=== PATIENT | female | born 1955 | race Caucasian/White ===

== ENCOUNTER → 2017-06-23 | Outpatient (CLI) | payer OTHER ==
--- NOTE | 2017-06-30 08:29 | WOMENS IMAGING REPORT ---
EXAM DESCRIPTION: 3D SCREENING MAMMO BILAT COMPLETED DATE/TIME: 06/23/2017 11:57 am REASON FOR STUDY: ROUTINE SCREENING; Z12.31 Z12.31 ENCNTR SCREEN MAMMOGRAM FOR MALIGNANT NEOPLASM O F FRANKI COMPARISON: 12/11/2013 TECHNIQUE: Standard craniocaudal and mediolateral oblique views of each breast recorded using digita l acquisition and breast tomosynthesis. LIMITATIONS: None. FINDINGS: RIGHT BREAST MASSES: No suspicious masses. CALCIFICATIONS: No new or suspicious calcifications. ARCHITECTURAL DISTORTION: None. DEVELOPING DENSITY: None. ASYMMETRY: None noted. OTHER: No other significant findings. LEFT BREAST MASSES: No suspicious masses. CALCIFICATIONS: No new or suspicious calcifications. ARCHITECTURAL DISTORTION: In the far left upper outer quadrant 12 to 15 cm from the nipple, an area o f architectural distortion is present on MLO view which is incompletely included in the field of view on the CC mammograms. This requires further evaluation with left breast 90 mediolateral view, comp ression magnification views in the MLO and X CC orientations and ultrasound. DEVELOPING DENSITY: None. ASYMMETRY: None noted. OTHER: No other significant findings. Read with the assistance of CAD. .[facility] - R2 Cenova Version 1.3 .[facility] Imaging - R2 Cenova Version 1.3 .[facility] - R2 Cenova Version 2.4 .[facility] - R2 Cenova Version 2.4 .[facility] - R2 Stock Plan Administrator Version 9.2 IMPRESSION: No mammographic/ tomosynthesis evidence for malignancy right breast. Architectural distortion versus superimposed shadows far left upper outer quadrant for which addition al diagnostic mammograms and ultrasound are recommended. BREAST DENSITY: b. There are scattered areas of fibroglandular density. BIRAD: 0 Incomplete: Needs Additional Imaging Evaluation and/or prior Mammograms for Comparison. RECOMMENDATION: RECOMMENDED FOLLOW-UP: Left breast diagnostic mammograms and ultrasound The patient will be contacted for additional imaging. COMMENT: The patient has been notified of the results by letter per MQSA requirements. Additional no tification policies are in place for contacting patient with suspicious or incomplete findings. Quality ID #[id number]: The [employer] recommends an annual screening mammogram for women aged 40 years or over. This facility utilizes a reminder system to ensure that all patients receive reminder letters, and/or direct phone calls for appointments. This includes reminders for routine scr eening mammograms, diagnostic mammograms, or other Breast Imaging Interventions when appropriate. Th is patient will be placed in the appropriate reminder system. The [employer] (ACR) has developed recommendations for screening MRI of the breast s in certain patient populations, to be used in conjunction with mammography. Breast MRI surveillanc e may be appropriate for women with more than 20% lifetime risk of developing breast cancer as deter mined by genetic testing, significant family history of the disease, or history of mantle radiation f or Hodgkins Disease. ACR Practice Guidelines 2008. DBT Technology DBT is a type of tomographic mammography. With conventional mammography, overlapping breast tissue ma y make lesions difficult to detect, even with good compression. DBT uses an x-ray tube that rotates a round the breast, taking images at different angles. These images are then combined to create thin sl ices of the breast that the radiologist can view as a 3D reconstruction. The [employer] unit can perform full-field digital mammograms (2D imaging); or DBT (3D imaging); or both, in a combination mode that quickly performs both the mammogram and the tomosynthesis scan while the breast is still compressed. PQRS 6045F: Fluoroscopic imaging is not utilized for breast tomosynthesis. TECHNICAL DOCUMENTATION: FINDING NUMBER: (1) ASSESSMENT: (1) JOB ID: [id number] [employer]- All Rights Reserved
== END ==
LOC: WI 11:37
PROVIDERS: ATTEND Family Medicine
DX: Z12.31 Encounter for screening mammogram for malignant neoplasm of breast (principal); R92.8 Other abnormal and inconclusive findings on diagnostic imaging of breast
CPT/HCPCS: 77063; G0202; 77067

== ENCOUNTER → 2017-07-19 | Outpatient (CLI) | payer OTHER ==
--- NOTE | 2017-07-19 12:45 | WOMENS IMAGING REPORT ---
EXAM DESCRIPTION: 3D DX MAMMO LEFT UNILAT; U/S BREAST UNILAT LIMITED COMPLETED DATE/TIME: 07/19/2017 9:42 am; 07/19/2017 9:37 am REASON FOR STUDY: INCONCLUSIVE; R92.2; R92.2 INCONCLUSIVE; LEFT BREAST UPPER OUTER R92.2 INCONCLUSI VE MAMMOGRAM COMPARISON: 06/23/2017 and 12/11/2013. TECHNIQUE: Additional images include true lateral, exaggerated CC lateral, and spot compression MLO and CC images as well as lateral and exaggerated CCL tomosynthesis images. LIMITATIONS: None. FINDINGS: BREAST: left MASSES: No suspicious masses. CALCIFICATIONS: No new or suspicious calcifications. ARCHITECTURAL DISTORTION: None. DEVELOPING DENSITY: None. ASYMMETRY: None noted. OTHER: No other significant findings. BREAST ULTRASOUND: TECHNIQUE: Static and dynamic grayscale images acquired of the left breast in the specific areas of c linical/mammographic concern. Selected color Doppler images recorded. ELASTOGRAPHY PERFORMED: No. LIMITATIONS: None. FINDINGS: MASS: No mass identified. Normal glandular tissue. ELASTOGRAPHY CHARACTERISTICS: Not applicable. OTHER: No other significant finding. IMPRESSION: No worrisome mammographic or sonographic findings on additional evaluation of the left b reast. BREAST DENSITY: b. There are scattered areas of fibroglandular density. BIRAD: 1 Negative. RECOMMENDATION: RECOMMENDED FOLLOW UP: Birads 1 or 2: The patient should resume routine screening . SPECIFIC INTERVENTION/IMAGING/CONSULTATION RECOMMENDED:No additional intervention/ imaging/consultati on needed at this time. COMMUNICATION:The negative/benign results were communicated to the patient. COMMENT: The patient has been notified of the results by letter per MQSA requirements. Additional no tification policies are in place for contacting patient with suspicious or incomplete findings. Quality ID #[id number]: The [employer] recommends an annual screening mammogram for women aged 40 years or over. This facility utilizes a reminder system to ensure that all patients receive reminder letters, and/or direct phone calls for appointments. This includes reminders for routine scr eening mammograms, diagnostic mammograms, or other Breast Imaging Interventions when appropriate. Th is patient will be placed in the appropriate reminder system. The [employer] (ACR) has developed recommendations for screening MRI of the breast s in certain patient populations, to be used in conjunction with mammography. Breast MRI surveillanc e may be appropriate for women with more than 20% lifetime risk of developing breast cancer as deter mined by genetic testing, significant family history of the disease, or history of mantle radiation f or Hodgkins Disease. ACR Practice Guidelines 2008. DBT Technology DBT is a type of tomographic mammography. With conventional mammography, overlapping breast tissue ma y make lesions difficult to detect, even with good compression. DBT uses an x-ray tube that rotates a round the breast, taking images at different angles. These images are then combined to create thin sl ices of the breast that the radiologist can view as a 3D reconstruction. The [employer] unit can perform full-field digital mammograms (2D imaging); or DBT (3D imaging); or both, in a combination mode that quickly performs both the mammogram and the tomosynthesis scan while the breast is still compressed. PQRS 6045F: Fluoroscopic imaging is not utilized for breast tomosynthesis. TECHNICAL DOCUMENTATION: FINDING NUMBER: (1) ASSESSMENT: (1) JOB ID: [id number] [employer]- All Rights Reserved
== END ==
LOC: WI 08:34
PROVIDERS: ATTEND Family Medicine
DX: R92.2 Inconclusive mammogram (principal)
CPT/HCPCS: 77061; 76642; G0206

== ENCOUNTER 2017-08-29 09:28 | Emergency (ER) | payer OTHER ==
--- NOTE | 2017-08-29 10:40 | ER Document Report ---
HPI - HPI Patient complains to provider of: pain/swelling left ankle Onset: Other - several days Onset/Duration: Sudden Quality of pain: Throbbing Pain Level: 5 Context: 62 yo obese female woke up with left ankle pain and swelling several days ago, radiates up calf. No injury. No hx gout. Diabetic. No fever. Associated Symptoms: None Exacerbated by: Movement, Walking Relieved by: Denies - ROS ROS below otherwise negative: Yes Systems Reviewed and Negative: Yes All other systems reviewed and negative - REPRODUCTIVE Reproductive: DENIES: : Past Medical History - General Information source: Patient - Social History Smoking Status: Never Smoker Frequency of alcohol use: None Drug Abuse: None Lives with: Spouse/Significant other Family History: Reviewed & Not Pertinent - Past Medical History Cardiac Medical History: Reports: Hx Hypercholesterolemia, Hx Hypertension - medicated Endocrine Medical History: Reports: Hx Diabetes Mellitus Type 1 GI Medical History: Reports: Hx Ulcer - H.PYLORI LAST SUMMER/resolved Musculoskeltal Medical History: Reports Hx Arthritis Infectious Medical History: Denies: Hx Hepatitis Surgical Hx: Negative - Immunizations Hx Diphtheria, Pertussis, Tetanus Vaccination: No Vertical Provider Document - CONSTITUTIONAL Agree With Documented VS: Yes Exam Limitations: No Limitations General Appearance: No Apparent Distress - INFECTION CONTROL TRAVEL OUTSIDE OF THE [place] IN LAST 30 DAYS: No - HEENT HEENT: Atraumatic, Normocephalic - NECK Neck: Supple - RESPIRATORY Respiratory: Breath Sounds Normal, No Respiratory Distress O2 Sat by Pulse Oximetry: 97 - CARDIOVASCULAR Cardiovascular: Regular Rate, Regular Rhythm - MUSCULOSKELETAL/EXTREMETIES Musculoskeletal/Extremeties: Tender - warm, pink, left ankle, more tender with ROM, 2+ DP, Edema - NEURO Level of Consciousness: Awake, Alert, Appropriate Motor/Sensory: No Motor Deficit, No Sensory Deficit - DERM Integumentary: Warm, Dry Course - Re-evaluation Re-evalutation: 08/29/17 14:16 Aide Nichols VDU is negative. the uric acid is elevated. Pt also hyperglycemic - Vital Signs Vital signs: Temp Pulse Resp BP Pulse Ox 98.8 F 101 H 20 151/43 H 97 08/29/17 09:35 08/29/17 09:35 08/29/17 09:35 08/29/17 09:35 08/29/17 09:35 - Laboratory Result Diagrams: 08/29/17 11:55 08/29/17 11:55 Discharge - Discharge Clinical Impression: Hyperglycemia Gout Qualifiers: Gout site: ankle Gout etiology: unspecified cause Chronicity: acute Laterality : left Qualified Code(s): M10.9 - Gout, unspecified Condition: Good Disposition: HOME, SELF-CARE Instructions: Gout ([facility]), Gout Diet ([facility]), Hyperglycemia ([facility]) Additional Instructions: use the walker elevate the ankle prednisone tape pack see dr tovar for follow up watch your glucoses carefully as the prednisone may make it higher Prescriptions: Prednisone [Deltasone 10 mg Tablet] 10 mg PO ASDIR PRN #15 tablet PRN Reason: Referrals: SULAIMAN TOVAR MD [Primary Care Provider] - Follow up as needed
[2017-08-29] MEDS ORDERED: ONDANSETRON 4 MG TAB.RAPDIS PO ONE (11:33)
[2017-08-29] MEDS ORDERED: OXYCODONE-ACETAMINOPHEN 5-325 MG TABLET PO ONE (11:33)
[2017-08-29 12:38] LABS: ABSOLUTE EOSINOPHILS # (AUTO) 0.2 10^3/uL (0.0-0.6); ABSOLUTE LYMPHOCYTES (AUTO) 1.4 10^3/uL (0.5-4.7); ABSOLUTE MONOCYTES (AUTO) 0.8 10^3/uL (0.1-1.4); ABSOLUTE NEUT (AUTO) 6.4 10^3/uL (1.7-8.2); BASOPHILS % (AUTO) 0.4 % (0-2); HEMATOCRIT 29.2 % (36.0-47.0); LYMPHOCYTES % (AUTO) 15.4 % (13-45); MEAN CORPUSCULAR HEMOGLOBIN 27.6 pg (27.0-33.4); MEAN CORPUSCULAR HGB CONC 34.4 g/dL (32.0-36.0); MEAN CORPUSCULAR VOLUME 80 fl (80-97); MONOCYTES % (AUTO) 9.1 % (3-13); PLATELET COUNT 196 10^3/uL (150-450); RED BLOOD COUNT 3.63 10^6/uL (3.72-5.28); RED CELL DISTRIBUTION WIDTH 13.3 % (11.5-14.0); SEGMENTED NEUTROPHILS % (AUTO) 73.1 % (42-78); TOTAL CELLS COUNTED % (AUTO) 100 %; WHITE BLOOD COUNT 8.8 10^3/uL (4.0-10.5)
[2017-08-29 12:45] LABS: ALANINE AMINOTRANSFERASE 19 U/L (9-52); ALBUMIN 3.2 g/dL (3.5-5.0); ALKALINE PHOSPHATASE 120 U/L (38-126); ANION GAP 12 (5-19); ASPARTATE AMINO TRANSFERASE 10 U/L (14-36); BILIRUBIN,DIRECT 0.3 mg/dL (0.0-0.4); BILIRUBIN,TOTAL 0.6 mg/dL (0.2-1.3); BLOOD UREA NITROGEN 21 mg/dL (7-20); CALCIUM 9.3 mg/dL (8.4-10.2); CARBON DIOXIDE 26 mmol/L (22-30); CHLORIDE 102 mmol/L (98-107); GLUCOSE 318 mg/dL (75-110); POTASSIUM 3.8 mmol/L (3.6-5.0); SODIUM 140.3 mmol/L (137-145); TOTAL PROTEIN 5.9 g/dL (6.3-8.2); URIC ACID 8.4 mg/dL (2.5-7.5)
[2017-08-29] MEDS ORDERED: PREDNISONE 20 MG TABLET PO ONE (14:32)
[2017-08-29] MEDS ORDERED: HYDROCODONE/ACETAMINOPHEN 5-325 MG (6 TAB/ER DISP) PO PRN (14:34)
[2017-08-29 15:21] VITALS: BP 127/49
--- NOTE | 2017-08-29 15:36 | XCELERA REPORT ---
[address] [address] Lower Extremity Venous Evaluation Name: ROSALINDA RASMUSSEN Age: 62 yrs Gender: Female : 1955 Patient Status: Emergency Patient Location: ER Study Date: 08/29/2017 12:01 PM Procedure: Color flow and duplex imaging of the veins of the left lower extremity as well as the right Common Femoral vein. Reason For Study: left leg pain and swelling Ordering Physician: CAREY BARAKAT Performed By: Martha Edwards Right Sided Venous Evaluation The right common femoral vein is fully compressible. Spontaneous and phasic flow is present in the right common femoral vein. Left Sided Venous Evaluation Normal vessel filling wall to wall, compression and augmentation as well as Colour flow down to the infrageniculate veins. Critical Findings Discussed with Carey Barakat. Interpretation Summary No duplex evidence of DVT or obstruction in the left lower extremity nor in the right Common Femoral vein. : CAREY BARAKAT > Migue Nichols
== END 2017-08-29 15:10 | disposition home or self-care (01) ==
LOC: ER 09:28
DX: M10.9 Gout, unspecified (principal); E10.65 Type 1 diabetes mellitus with hyperglycemia; I10 Essential (primary) hypertension
CPT/HCPCS: 99285; 36415; 84550; 85025; 80053; 93971 ×2; S0119; J7512

== ENCOUNTER 2019-01-02 01:02 | Emergency (ER) | payer MEDICARE, OTHER ==
[2019-01-02] MEDS ORDERED: MIDAZOLAM 2 MG/2 ML INJ ONE (01:08)
[2019-01-02] MEDS ORDERED: RINGERS SOLUTION,LACTATED 1,000 ML IV ONE ×3 (01:17→06:02)
--- NOTE | 2019-01-02 01:35 | ER Document Report ---
ED General - General Stated Complaint: BLOOD SUGAR PROBLEMS Time Seen by Provider: 01/02/19 01:16 Primary Care Provider: SULAIMAN TOVAR MD [Primary Care Provider] - Follow up as needed Cannot obtain history due to: Altered mental status Notes: Patient is a 63-year-old female with past medical history of morbid obesity, hypertension, hyperlipidemia, insulin dependent diabetes, presents by EMS due to concerns of an episode of unresponsiveness. EMS reports the history is very difficult to ascertain as the patient was unable to provide meaningful history and her was intoxicated on scene. Had a time of arrival the patient is having generalized tonic-clonic activity while lying on the ground in the b athroom. I was called to the bedside. No further history can be obtained secondary to circumstances under which I am beginning to assess this patient. TRAVEL OUTSIDE OF THE [place] IN LAST 30 DAYS: No - Related Data Allergies/Adverse Reactions: melon Allergy (Mild, Uncoded 04/02/15 07:51) itchy throat Past Medical History - General Information source: Relative Cannot obtain history due to: Altered mental status - Social History Smoking Status: Unknown if Ever Smoked Lives with: Spouse/Significant other Family History: Reviewed & Not Pertinent - Past Medical History Cardiac Medical History: Reports: Hx Hypercholesterolemia, Hx Hypertension - medicated Denies: Hx Coronary Artery Disease, Hx Heart Attack Pulmonary Medical History: Denies: Hx Asthma, Hx Bronchitis, Hx COPD, Hx Pneumonia Neurological Medical History: Denies: Hx Cerebrovascular Accident, Hx Seizures Endocrine Medical History: Reports: Hx Diabetes Mellitus Type 1 Renal/ Medical History: Denies: Hx Peritoneal Dialysis GI Medical History: Reports: Hx Ulcer - H.PYLORI LAST SUMMER/resolved. Denies: Hx Hepatitis, Hx Hiatal Hernia Musculoskeletal Medical History: Reports Hx Arthritis Infectious Medical History: Denies: Hx Hepatitis Past Surgical History: Denies: Hx Hysterectomy, Hx Mastectomy, Hx Open Heart Surgery, Hx Pacemaker - Immunizations Hx Diphtheria, Pertussis, Tetanus Vaccination: No Review of Systems - Review of Systems -: Yes ROS unobtainable due to patient's medical condition Physical Exam - Vital signs Vitals: Pulse Ox 100 01/02/19 01:17 Notes: PHYSICAL EXAMINATION: GENERAL: Initially having generalized tonic-clonic shaking but then does wake up. She is somewhat lethargic thereafter but is answering all questions. HEAD: Atraumatic, normocephalic. EYES: Pupils equal round and reactive to light, extraocular movements intact, sclera anicteric, conjunctiva are normal. ENT: nares patent, oropharynx clear without exudates. Dry mucous membranes. NECK: Normal range of motion, supple without lymphadenopathy LUNGS: Breath sounds clear to auscultation bilaterally and equal. No wheezes rales or rhonchi. HEART: Regular tachycardia without murmurs ABDOMEN: Soft, nontender, normoactive bowel sounds. No guarding, no rebound. No masses appreciated. EXTREMITIES: Normal range of motion, no pitting or edema. No cyanosis. NEUROLOGICAL: Face symmetric. Tongue protrudes midline. Extraocular motions intact. Pupils are 2 mm and equally reactive. Normal speech, gait deferred. 5 out of 5 strength in both the distal and proximal upper and lower extremities bilaterally. Sensation is grossly intact throughout. PSYCH: Somewhat somnolent SKIN: Warm, Dry, normal turgor, no rashes or lesions noted. Course - Re-evaluation Re-evalutation: 01/02/19 01:35 Documentation is delayed as I was at this patient's bedside after being called to the bathroom where she was lying on the ground having generalized tonic clonic movement. EMS reports that they were called out for an episode of unresponsiveness with hyperglycemia. Shortly after I got to the bathroom the patient began to no longer have generalized movement, and started answering questions appropriately almost immediately and this seemed to be inconsistent wi th a postictal phase. Question of syncope with tonic clonic jerking vs seizure. Patient's BGL at bedside noted to be "high". Bedside neurologic testing completely unremarkable without focal deficit. Patient was noted to be somewhat lethargic but answering all questions appropriately. Patient is guarded condition, labs are all pending. She did not hit her neck or head during the fall in the bathroom as she was caught by an EMS worker who had gone to the restroom with her. 01/02/19 02:23 Patient has had a generalized tonic-clonic movement and this time is postictal. At this point I have to assume that the previous event was likewise a seizure and that she likewise had a seizure at home making this her third generalized tonic-clonic seizure within the span of 4 to 5 hours. She will be loaded with Keppra 2000 mg. Seizure terminated with 2 mg of IV Ativan. She will require transfer to a center with neurologic capacity as the patient has had multiple seizures at this time. Will also obtain a CT of the head. 01/02/19 02:59 BGL very elevated at 743. Patient apparently took 70 units of an unknown type of insulin prior to coming to the hospital today per EMS. Will therefore start with a lower dose of insulin at this point at 12 units as I do not wish to make the patient become hypoglycemic. CT the head is pending. Patient will require transfer. Load of Gutierrez has been completed. 01/02/19 05:[address] speak [address] Dr. Stock the neurologist on-call at [facility]. We reviewed case, she advised consultation with medicine. I then spoke with the hospitalist Dr. Redman who did accept the patient. After further review of details of laboratories, given the patient is having seizures, HHS is certainly a concern at this time. Serum osmolality is pending. patient has received 2 L of fluid up to this point and will receive a third at this time. Insulin drip has been started based off of the recommendations of the accepting medicine physician. Repeat Accu-Chek is currently down to 518. - Vital Signs Vital signs: Temp Pulse Resp BP Pulse Ox 27 H 182/87 H 97 01/02/19 05:02 01/02/19 05:02 01/02/19 05:02 - Laboratory Result Diagrams: 01/02/19 02:08 01/02/19 02:08 Laboratory results interpreted by me: 01/02/19 01/02/19 01/02/19 01:36 02:08 02:08 Hgb 11.0 L Hct 33.2 L RDW 14.2 H Sodium 136.0 L Glucose 743 H* POC Glucose Serum Osmolality Alkaline Phosphatase 228 H Total Protein 5.1 L Albumin 2.6 L Urine Protein >=500 H Urine Glucose (UA) >=500 H Urine Blood SMALL H 01/02/19 01/02/19 01/02/19 02:08 04:45 05:59 Hgb Hct RDW Sodium Glucose POC Glucose 518 H* 499 H* Serum Osmolality 324 H Alkaline Phosphatase Total Protein Albumin Urine Protein Urine Glucose (UA) Urine Blood - Diagnostic Test Radiology reviewed: Image reviewed, Reports reviewed Radiology results interpreted by me: 01/02/19 02:59 Chest x-ray: No acute infiltrate or pneumothorax - EKG Interpretation by Me Additional EKG results interpreted by me: 01/02/19 03:01 Sinus tachycardia, rate 108. No ST elevations or depressions. QTC is 494. Critical Care Note - Critical Care Note Total time excluding time spent on procedures (mins): 78 Comments: Critical care time spent obtaining history from patient or surrogate, discussing with EMS, development of treatment plan with patient or surrogate, evaluation of patient's response to treatment, examination of patient, ordering and performing treatments and interventions, ordering and review of laboratory studies, re- evaluation of patient's condition, ordering and review of radiographic studies and review of old charts Discharge - Discharge Clinical Impression: Recurrent seizures, Hyperglycemia Altered mental status Qualifiers: Altered mental status type: unspecified Qualified Code(s): R41.82 - Altered mental status, unspecified Condition: Fair Disposition: [facility] Referrals: SULAIMAN TOVAR MD [Primary Care Provider] - Follow up as needed
[2019-01-02] MEDS ORDERED: LORAZEPAM INJ 2 MG/1 ML VIAL ONE (02:16)
[2019-01-02] MEDS ORDERED: NACL ISO IV ONE (02:23)
[2019-01-02] MEDS ORDERED: LEVETIRACETAM IV ONE (02:23)
[2019-01-02 02:25] LABS: ABSOLUTE EOSINOPHILS # (AUTO) 0.2 10^3/uL (0.0-0.6); ABSOLUTE MONOCYTES (AUTO) 0.4 10^3/uL (0.1-1.4); BASOPHILS % (AUTO) 0.8 % (0-2); HEMATOCRIT 33.2 % (36.0-47.0); LYMPHOCYTES % (AUTO) 17.1 % (13-45); MEAN CORPUSCULAR HEMOGLOBIN 28.5 pg (27.0-33.4); MEAN CORPUSCULAR HGB CONC 33.1 g/dL (32.0-36.0); MEAN CORPUSCULAR VOLUME 86 fl (80-97); MONOCYTES % (AUTO) 7.6 % (3-13); PLATELET COUNT 193 10^3/uL (150-450); RED BLOOD COUNT 3.85 10^6/uL (3.72-5.28); RED CELL DISTRIBUTION WIDTH 14.2 % (11.5-14.0); SEGMENTED NEUTROPHILS % (AUTO) 71.5 % (42-78); TOTAL CELLS COUNTED % (AUTO) 100 %; WHITE BLOOD COUNT 5.5 10^3/uL (4.0-10.5)
[2019-01-02 02:28] LABS: VENOUS BLOOD BASE EXCESS -0.9 mmol/L; VENOUS BLOOD HCO3 25.4 mmol/L (20-32); VENOUS BLOOD PCO2 48.6 mmHg (35-63); VENOUS BLOOD PH 7.34 (7.30-7.42)
[2019-01-02 02:43] LABS: ALANINE AMINOTRANSFERASE 25 U/L (9-52); ALBUMIN 2.6 g/dL (3.5-5.0); ALKALINE PHOSPHATASE 228 U/L (38-126); ANION GAP 11 (5-19); ASPARTATE AMINO TRANSFERASE 18 U/L (14-36); BILIRUBIN,DIRECT 0.3 mg/dL (0.0-0.4); BILIRUBIN,TOTAL 0.5 mg/dL (0.2-1.3); BLOOD UREA NITROGEN 18 mg/dL (7-20); CALCIUM 8.7 mg/dL (8.4-10.2); CARBON DIOXIDE 25 mmol/L (22-30); CHLORIDE 100 mmol/L (98-107); POTASSIUM 3.6 mmol/L (3.6-5.0); TOTAL PROTEIN 5.1 g/dL (6.3-8.2)
[2019-01-02 02:46] LABS: APPEARANCE,URINE CLEAR; BILIRUBIN,URINE NEGATIVE (NEGATIVE); COLOR,URINE STRAW; GLUCOSE, URINE >=500 mg/dL (NEGATIVE); KETONES,URINE NEGATIVE (NEGATIVE); LEUKOCYTE ESTERASE,URINE NEGATIVE (NEGATIVE); NITRITE,URINE NEGATIVE (NEGATIVE); PROTEIN,URINE >=500 mg/dL (NEGATIVE); URINE SPECIFIC GRAVITY 1.027; UROBILINOGEN,URINE NEGATIVE mg/dL (<2.0)
--- NOTE | 2019-01-02 02:55 | RADIOLOGY REPORT (SQ) ---
CLINICAL HISTORY: sob COMPARISON: March 14, 2015. TECHNIQUE: XR CHEST 1 VIEW 01/02/2019 1:19 AM CDT FINDINGS: Cardiac silhouette is normal in size. Lungs are clear without consolidation, atelectasis, mass or edema. There is no pleural effusion. There is no pneumothorax. There are no acute osseous findings. IMPRESSION: Clear lungs.
[2019-01-02 02:58] LABS: GLUCOSE 743 mg/dL (75-110)
[2019-01-02] MEDS ORDERED: INSULIN REG, HUMAN 100 UNIT/ML 3 ML VIAL (PYX) IV ONE ×2 (02:58→04:57)
[2019-01-02] MEDS ORDERED: LEVETIRACETAM 1000 MG/NACL-ISO 1,000 MG/100 ML RTUPB IV ONE (03:15)
[2019-01-02] MEDS ORDERED: LEVETIRACETAM 1000 MG/NACL-ISO 1,000 MG/100 ML RTUPB IV SCH ×3 (03:30→10:00)
--- NOTE | 2019-01-02 03:52 | RADIOLOGY REPORT (SQ) ---
EXAM DESCRIPTION: CT HEAD WITHOUT IV CONTRAST COMPLETED DATE/TME: 01/02/2019 02:22 CLINICAL HISTORY: 63 years Female, seizures COMPARISON: None. TECHNIQUE: No contrast. Coronal and sagittal reformat. This exam was performed according to our departmental dose-optimization program, which includes automated exposure control, adjustment of the mA and/or kV according to patient size and/or use of iterative reconstruction technique. FINDINGS: High attenuation, 86-HU, of the left ocular globe may indicate acute hemorrhage. No infarct. No mass, mass effect, or midline shift. Small left maxillary mucosal thickening. Brain and extra-axial structures appear otherwise intact. IMPRESSION: High attenuation, 86-HU, of the left ocular globe may indicate acute hemorrhage. CT appearance of the brain is otherwise unremarkable.
[2019-01-02 07:06] VITALS: BP 173/89
--- NOTE | 2019-01-02 13:36 | ER Document Report ---
Doctor's Note Notes: 01/02/19 13:32 Please see previous physician's note for further details of her HPI. Patient reportedly had seizures prior to arrival. Was hyperglycemic with blood sugars over 700. Patient had a work-up performed here. There was a finding on CT scan which is mentioned of possible hemorrhage in the left eye. Patient had been admitted at [facility] in [place]. Patient's blood sugar had come down nicely. The hospitalist at [facility] call back for status reports her repeat evaluation was performed. Physical exam: General: Alert no acute distress. Patient sleepy but easily arousable and following commands. Slightly tachycardic with a heart rate of 105. Morbidly obese with a BMI of 48. Weight of 124 kg. HEENT: Atraumatic, normocephalic, blind in the left eye. Right eye normal. Extraocular muscles are intact, nose is non tender, posterior pharynx is without erythema or exudate. Tongue is unremarkable. Slightly dry mucous membranes. Heart: no murmurs, no rubs, no clicks Lungs: Lungs clear to auscultation bilaterally, no wheezes, rhonchi, rales Abdomen: Abdomen is soft, nontender, nondistended, normal bowel sounds Neuro: cranial nerves II through XII intact, reflexes intact, sensation intact, Extremities:Moving all extremities. Equal strength bilaterally in the upper lower extremities. No significant deformity Skin: No lesions. Skin intact Psych: Normal insight. Normal judgment Assessment and plan: Patient has improving hyperglycemia. Blood sugar now below 250 so insulin drip stopped. Patient not in DKA so I am not starting D5 and continuing the insulin drip as we would normally do with a DKA patient patient's mental status is improving. Patient is sitting upright and protecting her airway. Has been observed here for quite some time with no further seizure-like activity. Has been loaded with Keppra. I have consulted with the hospitalist at [facility] in [place]. Currently I do not think patient needs to be kept here and definitely waiting for a bed there. There is a current bed available at [facility] and [facility] and the hospitalist there has been consulted, Dr. Watson and he is comfortable accepting this patient with neurology consults via telemedicine and transferring to [facility] in [place] if needed. I actually feel comfortable with this plan at this time as patient has been observed here for excessive amount of time and remained stable with improving labs and vital signs as well as improving mental status. Patient pending transport at this time. Patient has been reevaluated at 1345 and remained stable for transport.
--- NOTE | 2019-01-03 10:22 | EKG REPORT ---
SEVERITY:- ABNORMAL ECG - SINUS TACHYCARDIA LVH WITH IVCD, LAD AND SECONDARY REPOL ABNRM : Confirmed by: Ksenia Temple 03-Jan-2019 10:20:44
== END 2019-01-02 14:31 | disposition short-term general hospital (02) ==
LOC: ER 01:02
DX: R56.9 Unspecified convulsions (principal); R41.82 Altered mental status, unspecified; E66.01 Morbid (severe) obesity due to excess calories; E10.65 Type 1 diabetes mellitus with hyperglycemia; E78.00 Pure hypercholesterolemia, unspecified; I10 Essential (primary) hypertension
CPT/HCPCS: 93005; 99291; 99292; 96361; 96375; 96365; 36415; 82962; 83930; 85025; 80053; 81001; 84484; 82803; 71045; 70450; 93010; J2250; J2060; A9270; J7120; J1953; J1815

== ENCOUNTER 2019-05-19 20:42 | Emergency (ER) | payer MEDICARE ==
[2019-05-19] MEDS ORDERED: NORMAL SALINE 1000 ML 1,000 ML IV ONE ×2 (20:59→23:00)
--- NOTE | 2019-05-19 21:04 | ER Document Report ---
ED Medical Screen (RME) - General Chief Complaint: High Blood Pressure Stated Complaint: HIGH BLOOD SUGAR Time Seen by Provider: 05/19/19 20:58 Primary Care Provider: SULAIMAN TOVAR MD [Primary Care Provider] - Follow up as needed Mode of Arrival: Ambulatory Information source: Patient Notes: 63 year-old female presented to ED for elevated blood sugar almost 500 at home. is assisted that she come to the hospital because she did have a seizure from the diabetes in December. Patient is alert and oriented respirations regular and unlabored she is answering questions appropriately. I have greeted and performed a rapid initial assessment of this patient. A comprehensive ED assessment and evaluation of the patient, analysis of test results and completion of medical decision making process will be conducted by an additional ED providers. TRAVEL OUTSIDE OF THE [place] 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 Neurological Medical History: Reports: Hx Seizures Endocrine Medical History: Reports: Hx Diabetes Mellitus Type 2 Renal/ Medical History: Reports: None Malignancy Medical History: Reports: None GI Medical History: Reports: Hx Ulcer - H.PYLORI LAST SUMMER/resolved Musculoskeltal Medical History: Reports Hx Arthritis, Reports Hx Gout Skin Medical History: Reports None Psychiatric Medical History: Reports: None Traumatic Medical History: Reports: None Infectious Medical History: Reports: None Past Surgical History: Reports: Other - eye surgery - Immunizations Hx Diphtheria, Pertussis, Tetanus Vaccination: No Physical Exam - Vital signs Vitals: Temp Pulse Resp BP Pulse Ox 99.2 F 94 16 161/88 H 96 05/19/19 20:49 05/19/19 20:49 05/19/19 20:49 05/19/19 20:49 05/19/19 20:49 Course - Vital Signs Vital signs: Temp Pulse Resp BP Pulse Ox 99.2 F 94 16 161/88 H 96 05/19/19 20:49 05/19/19 20:49 05/19/19 20:49 05/19/19 20:49 05/19/19 20:49 Doctor's Discharge - Discharge Referrals: SULAIMAN TOVAR MD [Primary Care Provider] - Follow up as needed
[2019-05-19 21:38] LABS: APPEARANCE,URINE SLIGHTLY-CLOUDY; BILIRUBIN,URINE NEGATIVE (NEGATIVE); COLOR,URINE YELLOW; GLUCOSE, URINE 150 mg/dL (NEGATIVE); KETONES,URINE NEGATIVE (NEGATIVE); LEUKOCYTE ESTERASE,URINE NEGATIVE (NEGATIVE); NITRITE,URINE NEGATIVE (NEGATIVE); PROTEIN,URINE 100 mg/dL (NEGATIVE); URINE SPECIFIC GRAVITY 1.013; UROBILINOGEN,URINE NEGATIVE mg/dL (<2.0)
--- NOTE | 2019-05-19 21:41 | ER Document Report ---
ED Blood Sugar Problem - General Chief Complaint: High Blood Sugar Stated Complaint: HIGH BLOOD SUGAR Time Seen by Provider: 05/19/19 20:58 Primary Care Provider: SULAIMAN TOVAR MD [Primary Care Provider] - Follow up as needed Mode of Arrival: Ambulatory TRAVEL OUTSIDE OF THE [place] IN LAST 30 DAYS: No - HPI Notes: This is a 63-year-old female who presents today with complaint of elevated blood sugar. Patient has history of ofv-smbzvgr-yrrervcvz diabetes for which he takes metformin and insulin. Patient's noted leave me alone Leave the yellow that her blood sugar was 370 today, and then went up to 470 so she decided to come to the hospital. They had an episode back in December when she had seizures related to her blood sugars were concerned. Patient says her has been stressing out a lot ever since that episode. He keeps asking all the time if she is okay. She feels that stress may be part of why her blood sugar is elevated today. She has no complaints at this time. She denies any recent illness. She denies any chest pain. He denies any fever or chills. She denies any weakness or dizziness. She denies any vomiting or diarrhea. She denies any abdominal pain. - Related Data Allergies/Adverse Reactions: melon Allergy (Mild, Uncoded 04/02/15 07:51) itchy throat Past Medical History - General Information source: Patient - Social History Smoking Status: Former Smoker Chew tobacco use (# tins/day): No Frequency of alcohol use: None Drug Abuse: None Lives with: Family Family History: Reviewed & Not Pertinent Patient has suicidal ideation: No Patient has homicidal ideation: No - Past Medical History Cardiac Medical History: Reports: Hx Hypercholesterolemia, Hx Hypertension - medicated Denies: Hx Heart Attack Pulmonary Medical History: Reports: None Denies: Hx Asthma, Hx Bronchitis, Hx COPD, Hx Pneumonia EENT Medical History: 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 Denies: Hx Hepatitis, Hx Hiatal Hernia Musculoskeletal Medical History: Reports Hx Arthritis, Reports Hx Gout Skin Medical History: Reports None Psychiatric Medical History: Reports: None Traumatic Medical History: Reports: None Infectious Medical History: Reports: None. Denies: Hx Hepatitis Past Surgical History: Reports: Other - eye surgery. Denies: Hx Hysterectomy, Hx Mastectomy, Hx Open Heart Surgery - Immunizations Hx Diphtheria, Pertussis, Tetanus Vaccination: No Review of Systems - Review of Systems Constitutional: denies: Fever Cardiovascular: denies: Chest pain, Palpitations, Heart racing, Orthopnea, Dizziness Gastrointestinal: denies: Abdominal pain, Diarrhea, Nausea, Constipation Genitourinary: denies: Burning, Dysuria, Flank pain, Hematuria Musculoskeletal: denies: Back pain -: Yes All other systems reviewed and negative Physical Exam - Vital signs Vitals: Temp Pulse Resp BP Pulse Ox 99.2 F 94 16 161/88 H 96 05/19/19 20:49 05/19/19 20:49 05/19/19 20:49 05/19/19 20:49 05/19/19 20:49 - General General appearance: Appears well, Alert - Respiratory Respiratory status: No respiratory distress Chest status: Nontender Breath sounds: Normal Chest palpation: Normal - Cardiovascular Rhythm: Regular Heart sounds: Normal auscultation Murmur: No - Abdominal Inspection: Normal Distension: No distension Bowel sounds: Normal Tenderness: Nontender Organomegaly: No organomegaly - Extremities General upper extremity: Normal inspection, Nontender, Normal color, Normal ROM, Normal temperature General lower extremity: Normal inspection, Nontender, Normal color, Normal ROM, Normal temperature. No: Jerri's sign - Neurological Neuro grossly intact: Yes Cognition: Normal Orientation: AAOx4 Joy Coma Scale Eye Opening: Spontaneous Joy Coma Scale Verbal: Oriented Hodgen Coma Scale Motor: Obeys Commands Hodgen Coma Scale Total: 15 Speech: Normal Motor strength normal: LUE, RUE, LLE, RLE Sensory: Normal - Psychological Associated symptoms: Normal affect, Normal mood - Skin Skin Temperature: Warm Skin Moisture: Dry Skin Color: Normal Course - Re-evaluation Re-evalutation: 05/19/19 21:40 Differential diagnosis includes hyperglycemia likely secondary to stress versus noncompliance. Doubt DKA in a ozw-lyardat-vqvtgdakd diabetic. Will check basic labs including urinalysis to rule out any infectious etiology. Will hydrate patient. EKG shows normal sinus rhythm at 84 bpm. LVH. No acute injury pattern. 05/20/19 01:22 Patient reevaluated. Patient is doing well. She is asymptomatic. Blood sugar down to 316. She is stable for discharge. Follow-up instructions given. - Vital Signs Vital signs: Temp Pulse Resp BP Pulse Ox 99.2 F 94 16 140/51 H 100 05/19/19 20:49 05/19/19 20:49 05/19/19 23:02 05/19/19 23:02 05/19/19 23:02 - Laboratory Result Diagrams: 05/19/19 21:44 05/19/19 21:44 Laboratory results interpreted by me: 05/19/19 05/19/19 05/19/19 21:04 21:15 21:44 RBC 3.28 L Hgb 9.5 L Hct 27.5 L Eos % (Auto) 6.2 H BUN Est GFR ( Amer) Est GFR (MDRD) Non-Af Glucose POC Glucose 469 H* Alkaline Phosphatase Urine Protein 100 H Urine Glucose (UA) 150 H Urine Blood SMALL H 05/19/19 05/20/19 21:44 01:08 RBC Hgb Hct Eos % (Auto) BUN 46 H Est GFR ( Amer) 55 L Est GFR (MDRD) Non-Af 45 L Glucose 468 H* POC Glucose 316 H Alkaline Phosphatase 158 H Urine Protein Urine Glucose (UA) Urine Blood Discharge - Discharge Clinical Impression: Hyperglycemia due to type 2 diabetes mellitus Qualifiers: Diabetes mellitus 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
[2019-05-19 21:57] LABS: ABSOLUTE BASOPHILS # (AUTO) 0.1 10^3/uL (0.0-0.2); ABSOLUTE EOSINOPHILS # (AUTO) 0.3 10^3/uL (0.0-0.6); ABSOLUTE LYMPHOCYTES (AUTO) 1.4 10^3/uL (0.5-4.7); ABSOLUTE MONOCYTES (AUTO) 0.5 10^3/uL (0.1-1.4); ABSOLUTE NEUT (AUTO) 3.2 10^3/uL (1.7-8.2); BASOPHILS % (AUTO) 1.2 % (0-2); EOSINOPHILS % (AUTO) 6.2 % (0-6); HEMATOCRIT 27.5 % (36.0-47.0); HEMOGLOBIN 9.5 g/dL (12.0-15.5); MEAN CORPUSCULAR HEMOGLOBIN 28.8 pg (27.0-33.4); MEAN CORPUSCULAR HGB CONC 34.4 g/dL (32.0-36.0); MEAN CORPUSCULAR VOLUME 84 fl (80-97); MONOCYTES % (AUTO) 9.3 % (3-13); PLATELET COUNT 247 10^3/uL (150-450); RED BLOOD COUNT 3.28 10^6/uL (3.72-5.28); RED CELL DISTRIBUTION WIDTH 13.8 % (11.5-14.0); SEGMENTED NEUTROPHILS % (AUTO) 58.3 % (42-78); TOTAL CELLS COUNTED % (AUTO) 100 %; WHITE BLOOD COUNT 5.5 10^3/uL (4.0-10.5)
[2019-05-19 22:14] LABS: VENOUS BLOOD BASE EXCESS 0.1 mmol/L; VENOUS BLOOD HCO3 26.8 mmol/L (20-32); VENOUS BLOOD PCO2 53.2 mmHg (35-63); VENOUS BLOOD PH 7.32 (7.30-7.42)
[2019-05-19 22:21] LABS: ALBUMIN 3.8 g/dL (3.5-5.0); ALKALINE PHOSPHATASE 158 U/L (38-126); ANION GAP 13 (5-19); ASPARTATE AMINO TRANSFERASE 21 U/L (14-36); BILIRUBIN,DIRECT 0.2 mg/dL (0.0-0.4); BILIRUBIN,TOTAL 0.5 mg/dL (0.2-1.3); BLOOD UREA NITROGEN 46 mg/dL (7-20); CALCIUM 9.4 mg/dL (8.4-10.2); CARBON DIOXIDE 26 mmol/L (22-30); CHLORIDE 101 mmol/L (98-107); POTASSIUM 4.3 mmol/L (3.6-5.0); TOTAL PROTEIN 6.9 g/dL (6.3-8.2)
[2019-05-19 22:31] LABS: GLUCOSE 468 mg/dL (75-110)
[2019-05-19] MEDS ORDERED: INSULIN REG, HUMAN 100 UNIT/ML 3 ML VIAL (PYX) IV ONE (22:59)
[2019-05-20 01:31] VITALS: BP 138/51
--- NOTE | 2019-05-20 08:50 | EKG REPORT ---
SEVERITY:- ABNORMAL ECG - SINUS RHYTHM LVH WITH IVCD, LAD AND SECONDARY REPOL ABNRM : Confirmed by: Jillian Mcintyre MD 20-May-2019 08:49:26
== END 2019-05-20 02:02 | disposition home or self-care (01) ==
LOC: ER 20:42
DX: E11.65 Type 2 diabetes mellitus with hyperglycemia (principal); Z79.4 Long term (current) use of insulin; Z79.84 Long term (current) use of oral hypoglycemic drugs; I11.9 Hypertensive heart disease without heart failure; Z87.891 Personal history of nicotine dependence; Z91.018 Allergy to other foods
CPT/HCPCS: 93005; 36415; 82962; 85025; 80053; 81001; 82803; 93010; A9270; J7030 ×2; 96360; 96361; 99285; J1815